=== PATIENT | male | born 1935 | race Caucasian/White ===

== ENCOUNTER → 2020-02-12 | Outpatient (CLI) | payer MEDICARE | END | disposition home or self-care (01) | LOC: SHCH 12:55 | PROVIDERS: ATTEND Internal Medicine Cardiovascular Disease | DX: I71.2 Thoracic aortic aneurysm, without rupture (principal) ==

== ENCOUNTER 2021-12-19 09:00 | Inpatient (IN) | payer MEDICARE ==
[~2021-12-19] VITALS: Ht 188 cm; Wt 101.9 kg
[~2021-12-19 09:00] MED LIST: PROP225T3 PO
[2021-12-19 09:48] LABS: BASOPHILS % (AUTO) 0.4 % (0.0-5.0); EOSINOPHILS % (AUTO) 7.5 % (0.0-8.0); HEMATOCRIT 42.2 % (42-54); MEAN CORPUSCULAR VOLUME 96.8 fL (79-99); MONOCYTES % (AUTO) 11.4 % (3.0-13.0); NEUTROPHILS % (AUTO) 63.5 % (40.0-77.0); PLATELET COUNT (AUTO) 189 K/uL (130-400); RED BLOOD CELL COUNT(AUTO) 4.36 MIL/uL (4.50-6.20); RED CELL DISTRIBUTION WIDTH 12.2 % (11.0-15.5); WHITE BLOOD COUNT (AUTO) 4.8 K/uL (4.8-10.8)
[2021-12-19 09:49] LABS: APPEARANCE,URINE CLEAR (CLEAR); BILIRUBIN,URINE NEGATIVE (NEGATIVE); COLOR,URINE YELLOW (YELLOW); GLUCOSE, URINE (UA) NEGATIVE (NEGATIVE); KETONES,URINE NEGATIVE (NEGATIVE); LEUKOCYTE ESTERASE ,URINE NEGATIVE (NEGATIVE); NITRATE,URINE NEGATIVE (NEGATIVE); OCCULT BLOOD,URINE TRACE-INTACT (NEGATIVE); PROTEIN,URINE NEGATIVE (NEGATIVE); UROBILINOGEN,URINE 0.2 mg/dL (0.2-1.0)
[2021-12-19 09:57] LABS: CREATININE 0.7 mg/dL (0.5-1.5); POTASSIUM 4.7 mmol/L (3.5-5.1); RBC,URINE 0-1 /HPF (0-1); WBC,URINE None Seen /HPF (0-1)
[2021-12-19 09:59] LABS: BACTERIA,URINE Rare /HPF (None Seen); SQUAMOUS EPITHELIAL CELL,UR None Seen /HPF (0-2)
[2021-12-19 10:00] LABS: INR 1.32 (0.85-1.15)
[2021-12-19 10:13] VITALS: BP 151/73
[2021-12-19] MEDS ORDERED: TIMO1DRO5 OP (10:44)
[2021-12-19] MEDS ORDERED: WARF2.5T85 PO (10:44)
[2021-12-19] MEDS ORDERED: DAPS100T PO (10:44)
[2021-12-19] MEDS ORDERED: WARF-57 PO (10:44)
[2021-12-19] MEDS ORDERED: AEC81 PO (10:44)
[2021-12-22] VITALS (24 sets, daily range): BP systolic 110–147; BP diastolic 54–98
[2021-12-22] MEDS ORDERED: LACTATED RINGERS 1000ML 1,000 ML IV ONE (08:30)
[2021-12-22] MEDS: CEFAZOLIN SODIUM 1 GM VIAL IVP SCH ×3 (09:16→20:46)
[2021-12-22] MEDS ORDERED: LIDOCAINE PF 100MG/5ML (2%) SYRINGE 5ML ONE (11:43)
[2021-12-22] MEDS ORDERED: SUCCINYLCHOLINE CHLORIDE 20 MG/ML 10 ML VIAL ONE (11:43)
[2021-12-22] MEDS ORDERED: DEXAMETHASONE SOD PHOSPHATE 10MG/ML 1ML VIAL ONE (11:44)
[2021-12-22] MEDS ORDERED: ONDANSETRON 4MG INJ ONE (11:44)
[2021-12-22] MEDS ORDERED: GLYCOPYRROLATE 1 MG/5 ML SYRINGE ONE (11:44)
[2021-12-22] MEDS ORDERED: NEOSTIGMINE 5MG/5ML SYR IV ONE (11:44)
[2021-12-22] MEDS ORDERED: PROPOFOL 10 MG/ML 20ML VIAL IV ONE (11:44)
[2021-12-22] MEDS ORDERED: MIDAZOLAM HCL 1 MG/ML 2ML VIAL ONE (11:44)
[2021-12-22] MEDS ORDERED: ROCURONIUM 10MG/1ML SYR 10 MG/ML ML ONE (11:45)
[2021-12-22] MEDS ORDERED: FENTANYL CITRATE PF 50 MCG/1 ML 2ML VIAL ONE (11:46)
[2021-12-22] MEDS ORDERED: CEFAZOLIN SODIUM 1 GM VIAL ONE ×3 (13:24→20:00)
[2021-12-22] MEDS ORDERED: TRANEXAMIC ACID 1000MG/10ML ONE (14:41)
[2021-12-22] MEDS ORDERED: CALCIUM CARB 500MG PO PRN (16:30)
[2021-12-22] MEDS ORDERED: POTASSIUM CHLORIDE 10% ELIXIR 20 MEQ/15 ML UDCUP PO PRN (16:30)
[2021-12-22] MEDS ORDERED: DiphenhydrAMINE HCL 50 MG/ML VIAL IVP PRN (16:30)
[2021-12-22] MEDS: ACETAMINOPHEN 500 MG TABLET PO SCH (16:30)
[2021-12-22] MEDS ORDERED: ONDANSETRON 4MG INJ IVP PRN (16:30)
[2021-12-22] MEDS ORDERED: POTASSIUM CHLORIDE 20MEQ/100ML 100 ML IV PRN (16:30)
[2021-12-22] MEDS ORDERED: FERROUS FUMARATE 324 MG TABLET PO PRN (16:30)
[2021-12-22] MEDS ORDERED: LIDOCAINE HCL-MPF 1% 2ML VIAL IV PRN (16:30)
[2021-12-22] MEDS ORDERED: OXYCODONE HCL 5 MG TAB PO PRN ×2 (16:30)
[2021-12-22] MEDS ORDERED: TEMAZEPAM 15 MG CAPSULE PO PRN (16:30)
[2021-12-22] MEDS ORDERED: KCL 20 MEQ ERTAB PO PRN (16:30)
[2021-12-22] MEDS ORDERED: TRAMADOL HCL 50 MG TABLET PO PRN (16:30)
[2021-12-22] MEDS ORDERED: PHARMACY COMMUNICATION MISC SCH (17:00)
[2021-12-22] MEDS ORDERED: MEPERIDINE-PF 25 MG/ML SYG ONE ×2 (17:05→17:16)
[2021-12-22] MEDS: KETOROLAC 15MG/ML VIAL (15MG/ML) IV PRN (17:21)
[2021-12-22] MEDS: 0.9%NACL 1000ML 1,000 ML IV SCH (18:14)
[2021-12-22] MEDS: CELECOXIB 200 MG CAP PO SCH (20:45)
[2021-12-22] MEDS: WARFARIN SODIUM 5 MG TAB PO SCH (20:45)
[2021-12-22] MEDS: FAMOTIDINE 20MG TAB PO SCH (20:45)
[2021-12-22] MEDS: PROPAFENONE HCL 150 MG TABLET PO SCH (20:46)
[2021-12-22] MEDS: TIMOLOL MALEATE 0.5% 5 ML BOTTLE OP SCH (21:00)
[2021-12-23] MEDS: ACETAMINOPHEN 500 MG TABLET PO SCH ×4 (00:30→23:15)
[2021-12-23 03:22] VITALS: BP 120/72
[2021-12-23] MEDS: CEFAZOLIN SODIUM 1 GM VIAL IVP SCH (04:36)
[2021-12-23 04:46] LABS: HEMATOCRIT 34.1 % (42-54); MEAN CORPUSCULAR HEMOGLOBIN 30.4 pg (27.0-33.0); MEAN CORPUSCULAR HGB CONC 31.4 g/dL (32.0-36.0); MEAN CORPUSCULAR VOLUME 96.9 fL (79-99); RED BLOOD CELL COUNT(AUTO) 3.52 MIL/uL (4.50-6.20); RED CELL DISTRIBUTION WIDTH 12.1 % (11.0-15.5); WHITE BLOOD COUNT (AUTO) 9.3 K/uL (4.8-10.8)
[2021-12-23 04:58] LABS: INR 1.1 (0.85-1.15); PROTHROMBIN TIME 11.9 SEC (9.6-11.6)
[2021-12-23 05:10] LABS: CREATININE 0.6 mg/dL (0.5-1.5); POTASSIUM 4.4 mmol/L (3.5-5.1)
[2021-12-23 08:02] VITALS: BP 116/57
[2021-12-23] MEDS: TIMOLOL MALEATE 0.5% 5 ML BOTTLE OP SCH ×2 (09:00→20:36)
[2021-12-23] MEDS: TAMSULOSIN HCL 0.4 MG CAP.ER.24H PO SCH ×2 (09:00→09:14)
[2021-12-23] MEDS: FAMOTIDINE 20MG TAB PO SCH ×2 (09:14→20:32)
[2021-12-23] MEDS: ASPIRIN 81 MG EC TAB PO SCH (09:14)
[2021-12-23] MEDS: CELECOXIB 200 MG CAP PO SCH ×2 (09:14→20:33)
[2021-12-23] MEDS: DAPSONE 25 MG TAB PO SCH (09:14)
[2021-12-23] MEDS: PROPAFENONE HCL 150 MG TABLET PO SCH ×2 (09:14→20:33)
[2021-12-23] MEDS: POLYETHYLENE GLYCOL 3350 17 GM POWD.PACK PO SCH (09:15)
[2021-12-23 11:20] VITALS: BP 111/59
[2021-12-23] MEDS: 0.9%NACL 1000ML 1,000 ML IV SCH (12:30)
[2021-12-23] MEDS ORDERED: WARFARIN SODIUM 2.5 MG TAB PO SCH (16:00)
[2021-12-23 16:15] VITALS: BP 130/75
[2021-12-23] MEDS ORDERED: ENOXAPARIN SODIUM 40 MG/0.4 ML SYRINGE SQ ONE (18:50)
[2021-12-23] MEDS ORDERED: WARFARIN SODIUM 2.5 MG TAB PO ONE (18:50)
[2021-12-23 20:26] VITALS: BP 132/76
[2021-12-23 23:39] VITALS: BP 132/79
[2021-12-24 03:37] VITALS: BP 140/79
[2021-12-24 04:07] LABS: INR 1.54 (0.85-1.15); PROTHROMBIN TIME 16.1 SEC (9.6-11.6)
[2021-12-24 07:38] VITALS: BP 136/75
[2021-12-24] MEDS: ASPIRIN 81 MG EC TAB PO SCH (09:33)
[2021-12-24] MEDS: POLYETHYLENE GLYCOL 3350 17 GM POWD.PACK PO SCH (09:33)
[2021-12-24] MEDS: TAMSULOSIN HCL 0.4 MG CAP.ER.24H PO SCH (09:33)
[2021-12-24] MEDS: CELECOXIB 200 MG CAP PO SCH ×2 (09:34→19:33)
[2021-12-24] MEDS: ACETAMINOPHEN 500 MG TABLET PO SCH ×2 (09:35→16:25)
[2021-12-24] MEDS: FAMOTIDINE 20MG TAB PO SCH ×2 (09:35→19:33)
[2021-12-24] MEDS: PROPAFENONE HCL 150 MG TABLET PO SCH ×2 (09:36→19:33)
[2021-12-24] MEDS: DAPSONE 25 MG TAB PO SCH (09:37)
[2021-12-24] MEDS: TIMOLOL MALEATE 0.5% 5 ML BOTTLE OP SCH ×2 (09:39→19:35)
[2021-12-24 10:52] VITALS: BP 116/70
[2021-12-24] MEDS: KETOROLAC 15MG/ML VIAL (15MG/ML) IV PRN (12:47)
[2021-12-24 16:03] VITALS: BP 118/76
[2021-12-24] MEDS: WARFARIN SODIUM 5 MG TAB PO SCH (16:25)
[2021-12-24] MEDS ORDERED: WARFARIN SODIUM 5 MG TAB PO SCH (18:00)
[2021-12-24 20:12] VITALS: BP 115/67
[2021-12-25] MEDS ORDERED: BISACODYL 10 MG SUPP.RECT RC PRN (16:30)
== END 2021-12-24 22:15 | DRG 470 ==
LOC: EDSTATUS 09:00 → DAHIP 12-22 08:00 → OBSVTOIN 12-22 08:00 → 4AH 12-22 17:49
PROVIDERS: ADMIT Orthopaedic Surgery; ATTEND Orthopaedic Surgery
PROC: 3E0T3BZ Introduction of Anesthetic Agent into Peripheral Nerves and Plexi, Percutaneous Approach (ICD-10-PCS; 2021-12-22)
PROC: 0SRC0J9 Replacement of Right Knee Joint with Synthetic Substitute, Cemented, Open Approach (ICD-10-PCS; principal; 2021-12-22 13:13)
DX: M17.11 Unilateral primary osteoarthritis, right knee (principal); I73.9 Peripheral vascular disease, unspecified; D64.9 Anemia, unspecified; E03.9 Hypothyroidism, unspecified; E66.9 Obesity, unspecified; Z20.822 Contact with and (suspected) exposure to COVID-19; I48.0 Paroxysmal atrial fibrillation; Z82.49 Family history of ischemic heart disease and other diseases of the circulatory system; Z79.01 Long term (current) use of anticoagulants; Z68.28 Body mass index [BMI] 28.0-28.9, adult
CPT/HCPCS: 36415; 80048; 81001; 85025; 85027; 85610; 87088; 87635; 87641; 97039; G0378; J0330; J0690; J1100; J1650; J1885; J2001; J2175; J2250; J2405; J2704; J2710; J3010; J3490; J7120

== ENCOUNTER 2022-03-20 10:00 | Inpatient (IN) | payer MEDICARE ==
[~2022-03-20] VITALS: Ht 188 cm; Wt 97.5 kg
[~2022-03-20 10:00] MED LIST changes: +AEC81 PO; +DAPS100T PO; +TIMO1DRO5 OP; +WARF-57 PO
[2022-03-20 10:46] LABS: BASOPHILS % (AUTO) 0.6 % (0.0-5.0); EOSINOPHILS % (AUTO) 6.4 % (0.0-8.0); HEMATOCRIT 43.1 % (42-54); LYMPHOCYTES % (AUTO) 15.6 % (21.0-51.0); MEAN CORPUSCULAR HEMOGLOBIN 28.2 pg (27.0-33.0); MEAN CORPUSCULAR HGB CONC 30.9 g/dL (32.0-36.0); MEAN CORPUSCULAR VOLUME 91.5 fL (79-99); MONOCYTES % (AUTO) 10.1 % (3.0-13.0); NEUTROPHILS % (AUTO) 67.1 % (40.0-77.0); PLATELET COUNT (AUTO) 204 K/uL (130-400); RED BLOOD CELL COUNT(AUTO) 4.71 MIL/uL (4.50-6.20); RED CELL DISTRIBUTION WIDTH 14.6 % (11.0-15.5); WHITE BLOOD COUNT (AUTO) 5.5 K/uL (4.8-10.8)
[2022-03-20 11:00] LABS: INR 1.23 (0.85-1.15); PROTHROMBIN TIME 13.3 SEC (9.6-11.6)
[2022-03-20 11:02] LABS: CREATININE 0.8 mg/dL (0.5-1.5); POTASSIUM 4.4 mmol/L (3.5-5.1)
[2022-03-20 11:12] LABS: APPEARANCE,URINE Cloudy (CLEAR); BILIRUBIN,URINE Negative (NEGATIVE); COLOR,URINE Yellow (YELLOW); GLUCOSE, URINE (UA) Negative (NEGATIVE); KETONES,URINE Negative (NEGATIVE); LEUKOCYTE ESTERASE ,URINE Negative (NEGATIVE); NITRATE,URINE Negative (NEGATIVE); OCCULT BLOOD,URINE Negative (NEGATIVE); PH,URINE 6.5 (5.0-8.0); PROTEIN,URINE Negative (NEGATIVE)
[2022-03-20 11:34] LABS: BACTERIA,URINE Rare /HPF (None Seen); RBC,URINE 0-1 /HPF (0-1); SQUAMOUS EPITHELIAL CELL,UR Few /HPF (0-2); WBC,URINE 0-1 /HPF (0-1)
[2022-03-20 14:55] VITALS: BP 154/82
[2022-03-23] VITALS (29 sets, daily range): BP systolic 96–150; BP diastolic 55–84
[2022-03-23] MEDS ORDERED: LACTATED RINGERS 1000ML 1,000 ML IV ONE (08:25)
[2022-03-23] MEDS: CEFAZOLIN SODIUM 1 GM VIAL IVP SCH ×4 (08:33→18:15)
[2022-03-23 08:48] LABS: INR 1.1 (0.85-1.15); PROTHROMBIN TIME 11.9 SEC (9.6-11.6)
[2022-03-23 08:49] LABS: PARTIAL THROMBOPLASTIN TIME 29.4 SEC (26.3-35.5)
[2022-03-23] MEDS ORDERED: SUCCINYLCHOLINE CHLORIDE 20 MG/ML 10 ML VIAL ONE (09:46)
[2022-03-23] MEDS ORDERED: PROPOFOL 10 MG/ML 20ML VIAL IV ONE (09:46)
[2022-03-23] MEDS ORDERED: FENTANYL CITRATE PF 50 MCG/1 ML 2ML VIAL ONE (09:47)
[2022-03-23] MEDS ORDERED: MIDAZOLAM HCL 1 MG/ML 2ML VIAL ONE (09:47)
[2022-03-23] MEDS ORDERED: ROCURONIUM 10MG/1ML SYR 10 MG/ML ML ONE ×2 (09:47→11:07)
[2022-03-23] MEDS ORDERED: CEFAZOLIN SODIUM 1 GM VIAL ONE ×2 (10:23→10:24)
[2022-03-23] MEDS ORDERED: DEXAMETHASONE SOD PHOSPHATE 10MG/ML 1ML VIAL ONE (10:26)
[2022-03-23] MEDS ORDERED: TRAMADOL HCL 50 MG TABLET PO PRN (12:30)
[2022-03-23] MEDS ORDERED: POTASSIUM CHLORIDE 10% ELIXIR 20 MEQ/15 ML UDCUP PO PRN (12:30)
[2022-03-23] MEDS ORDERED: ONDANSETRON 4MG INJ IVP PRN (12:30)
[2022-03-23] MEDS ORDERED: 0.9%NACL 1000ML 1,000 ML IV SCH (12:30)
[2022-03-23] MEDS ORDERED: POTASSIUM CHLORIDE 20MEQ/100ML 100 ML IV PRN (12:30)
[2022-03-23] MEDS ORDERED: KETOROLAC 15MG/ML VIAL (15MG/ML) IV PRN (12:30)
[2022-03-23] MEDS ORDERED: FERROUS FUMARATE 324 MG TABLET PO PRN (12:30)
[2022-03-23] MEDS ORDERED: DiphenhydrAMINE HCL 50 MG/ML VIAL IVP PRN (12:30)
[2022-03-23] MEDS ORDERED: KCL 20 MEQ ERTAB PO PRN (12:30)
[2022-03-23] MEDS: ACETAMINOPHEN 500 MG TABLET PO SCH ×2 (12:30→20:16)
[2022-03-23] MEDS ORDERED: LIDOCAINE HCL-MPF 1% 2ML VIAL IV PRN (12:30)
[2022-03-23] MEDS ORDERED: OXYCODONE HCL 5 MG TAB PO PRN (12:30)
[2022-03-23] MEDS ORDERED: MORPHINE 4 MG SYG ONE (13:56)
[2022-03-23] MEDS ORDERED: WARFARIN SODIUM 5 MG TAB PO ONE (17:00)
[2022-03-23] MEDS: CELECOXIB 200 MG CAP PO SCH (20:15)
[2022-03-23] MEDS: ASPIRIN 81 MG EC TAB PO SCH (20:15)
[2022-03-23] MEDS: PROPAFENONE HCL 150 MG TABLET PO SCH (20:15)
[2022-03-23] MEDS: FAMOTIDINE 20MG TAB PO SCH (20:15)
[2022-03-23] MEDS: TIMOLOL MALEATE 0.5% 5 ML BOTTLE OP SCH (20:16)
[2022-03-23] MEDS: DAPSONE 25 MG TAB PO SCH (20:16)
[2022-03-24] MEDS: CEFAZOLIN SODIUM 1 GM VIAL IVP SCH (00:53)
[2022-03-24 03:27] VITALS: BP 95/58
[2022-03-24] MEDS: ACETAMINOPHEN 500 MG TABLET PO SCH ×3 (03:36→20:02)
[2022-03-24 05:11] LABS: HEMATOCRIT 31.8 % (42-54); MEAN CORPUSCULAR HEMOGLOBIN 28.8 pg (27.0-33.0); MEAN CORPUSCULAR HGB CONC 32.4 g/dL (32.0-36.0); MEAN CORPUSCULAR VOLUME 88.8 fL (79-99); RED BLOOD CELL COUNT(AUTO) 3.58 MIL/uL (4.50-6.20); RED CELL DISTRIBUTION WIDTH 14.3 % (11.0-15.5); WHITE BLOOD COUNT (AUTO) 7.7 K/uL (4.8-10.8)
[2022-03-24 05:26] LABS: CREATININE 0.9 mg/dL (0.5-1.5); POTASSIUM 4.1 mmol/L (3.5-5.1)
[2022-03-24] MEDS: CALCIUM CARB 500MG PO PRN ×2 (05:43→12:57)
[2022-03-24 08:00] VITALS: BP 127/78
[2022-03-24] MEDS: OXYCODONE HCL 5 MG TAB PO PRN ×2 (08:27→18:50)
[2022-03-24] MEDS: TIMOLOL MALEATE 0.5% 5 ML BOTTLE OP SCH ×2 (09:00→20:02)
[2022-03-24] MEDS: ASPIRIN 81 MG EC TAB PO SCH ×3 (09:00→20:01)
[2022-03-24] MEDS: TAMSULOSIN HCL 0.4 MG CAP.ER.24H PO SCH (10:00)
[2022-03-24] MEDS: POLYETHYLENE GLYCOL 3350 17 GM POWD.PACK PO SCH (10:00)
[2022-03-24] MEDS: FAMOTIDINE 20MG TAB PO SCH ×2 (10:00→20:01)
[2022-03-24] MEDS: CELECOXIB 200 MG CAP PO SCH ×2 (10:00→20:01)
[2022-03-24] MEDS: PROPAFENONE HCL 150 MG TABLET PO SCH ×2 (10:00→20:01)
[2022-03-24 11:44] VITALS: BP 101/62
[2022-03-24 16:00] VITALS: BP 101/59
[2022-03-24] MEDS ORDERED: WARFARIN SODIUM 5 MG TAB PO SCH (16:00)
[2022-03-24] MEDS ORDERED: WARFARIN SODIUM 7.5 MG TAB PO SCH (17:00)
[2022-03-24] MEDS: DAPSONE 25 MG TAB PO SCH (20:01)
[2022-03-24 20:50] VITALS: BP 114/60
[2022-03-25] MEDS: ACETAMINOPHEN 500 MG TABLET PO SCH ×3 (03:53→12:35)
[2022-03-25] MEDS: CEFAZOLIN SODIUM 1 GM VIAL IVP SCH (03:54)
[2022-03-25 05:18] VITALS: BP 122/62
[2022-03-25 05:29] LABS: INR 2.25 (0.85-1.15); PROTHROMBIN TIME 23.4 SEC (9.6-11.6)
[2022-03-25 08:00] VITALS: BP 118/62
[2022-03-25] MEDS: PROPAFENONE HCL 150 MG TABLET PO SCH (08:20)
[2022-03-25] MEDS: OXYCODONE HCL 5 MG TAB PO PRN (08:20)
[2022-03-25] MEDS: POLYETHYLENE GLYCOL 3350 17 GM POWD.PACK PO SCH (08:20)
[2022-03-25] MEDS: CELECOXIB 200 MG CAP PO SCH (08:20)
[2022-03-25] MEDS: FAMOTIDINE 20MG TAB PO SCH (08:21)
[2022-03-25] MEDS: ASPIRIN 81 MG EC TAB PO SCH ×2 (08:21)
[2022-03-25] MEDS: TAMSULOSIN HCL 0.4 MG CAP.ER.24H PO SCH (08:21)
[2022-03-25] MEDS: TIMOLOL MALEATE 0.5% 5 ML BOTTLE OP SCH (09:00)
[2022-03-25 11:42] VITALS: BP 94/56
[2022-03-25] MEDS ORDERED: HYDR-4060 PO (13:39)
[2022-03-25 16:00] VITALS: BP 121/74
[2022-03-26] MEDS ORDERED: BISACODYL 10 MG SUPP.RECT RC PRN (12:30)
== END 2022-03-25 17:59 | DRG 470 ==
LOC: EDSTATUS 10:00 → OBSVTOIN 03-23 07:36 → DAHIP 03-23 07:36 → 4AH 03-23 14:45
PROVIDERS: ADMIT Orthopaedic Surgery; ATTEND Orthopaedic Surgery
PROC: 0SRD0J9 Replacement of Left Knee Joint with Synthetic Substitute, Cemented, Open Approach (ICD-10-PCS; principal; 2022-03-23 10:11)
DX: M17.12 Unilateral primary osteoarthritis, left knee (principal); D64.89 Other specified anemias; E03.9 Hypothyroidism, unspecified; I48.0 Paroxysmal atrial fibrillation; Z96.651 Presence of right artificial knee joint; Z79.01 Long term (current) use of anticoagulants
CPT/HCPCS: 36415; 80048; 81001; 85025; 85027; 85610; 85730; 87088; 87426; 87641; 97039; G0378; J0330; J0690; J1100; J2250; J2270; J2704; J3010; J7120

== ENCOUNTER 2022-07-27 06:33 | Day surgery (SDC) | payer MEDICARE ==
[2022-07-21 14:05] LABS: BASOPHILS % (AUTO) 0.5 % (0.0-5.0); EOSINOPHILS % (AUTO) 5.3 % (0.0-8.0); HEMATOCRIT 37.5 % (42-54); LYMPHOCYTES % (AUTO) 16.4 % (21.0-51.0); MEAN CORPUSCULAR HEMOGLOBIN 29.9 pg (27.0-33.0); MEAN CORPUSCULAR HGB CONC 31.2 g/dL (32.0-36.0); MEAN CORPUSCULAR VOLUME 95.9 fL (79-99); MONOCYTES % (AUTO) 9.8 % (3.0-13.0); NEUTROPHILS % (AUTO) 67.7 % (40.0-77.0); PLATELET COUNT (AUTO) 186 K/uL (130-400); RED BLOOD CELL COUNT(AUTO) 3.91 MIL/uL (4.50-6.20); RED CELL DISTRIBUTION WIDTH 14.7 % (11.0-15.5); WHITE BLOOD COUNT (AUTO) 5.8 K/uL (4.8-10.8)
[2022-07-21 14:14] LABS: CREATININE 0.8 mg/dL (0.5-1.5); POTASSIUM 4.6 mmol/L (3.5-5.1)
[2022-07-21 14:21] VITALS: BP 142/72
[~2022-07-27] VITALS: Ht 188 cm; Wt 103.8 kg
[2022-07-27] VITALS (11 sets, daily range): BP systolic 103–136; BP diastolic 47–75
[~2022-07-27 06:33] MED LIST changes: +0.9%NACL 1000ML 1,000 ML IV SCH; +METO25TA6 PO
[2022-07-27] MEDS ORDERED: SUCCINYLCHOLINE 200MG/10ML SYR ONE (08:10)
[2022-07-27] MEDS ORDERED: PROPOFOL 10 MG/ML 20ML VIAL IV ONE (08:10)
[2022-07-27] MEDS ORDERED: PHENYLEPHRINE HCL 10 MG/ML 1ML VIAL IV ONE (08:14)
[2022-07-27 09:18] LABS: PARTIAL THROMBOPLASTIN TIME 44.4 SEC (26.3-35.5)
[2022-07-27 09:22] LABS: INR 4.02 (0.85-1.15); PROTHROMBIN TIME 40.5 SEC (9.6-11.6)
== END 2022-07-27 09:15 | disposition home or self-care (01) ==
LOC: DAH 06:33
PROVIDERS: ATTEND Internal Medicine Cardiovascular Disease
DX: I48.19 Other persistent atrial fibrillation (principal); Z20.822 Contact with and (suspected) exposure to COVID-19; I10 Essential (primary) hypertension; E03.9 Hypothyroidism, unspecified; M17.12 Unilateral primary osteoarthritis, left knee; Z88.8 Allergy status to other drugs, medicaments and biological substances; Z79.899 Other long term (current) drug therapy; Z79.82 Long term (current) use of aspirin; Z79.01 Long term (current) use of anticoagulants
CPT/HCPCS: 87426; 80048; 85025; 36415 ×2; 92960; 85610; 85730; 93005 ×2; J0330; J2704; J2370; A4215; A4222; A4221; A4663; A4216; A4606; A4223 ×3